=== PATIENT | male | born 1965 | race Caucasian/White ===

== ENCOUNTER → 2016-10-17 | Outpatient (CLI) | payer BC ==
[~2016-10-17] MED LIST: CIPR-255 PO
[2016-10-17 12:56] LABS: BASO % 0.3 %; BASO ABS # 0.02 K/uL (0-0.2); COMPLETE YES; EOS % 2.2 %; HEMATOCRIT 46.7 % (42-52); IG% 0.3 %; LYMPH % 28.2 %; MEAN CELL VOLUME 91.2 fL (80-100); MEAN CORPUSCULAR HEMOGLOBIN 32.4 pg (25-34); MEAN CORPUSCULAR HGB CONC 35.5 g/dl (32-36); MEAN PLATELET VOLUME 11.7 fL (7.4-10.4); MONO % 7.7 %; NEUT % 61.3 %; PLATELET COUNT 170 K/uL (130-400); RED BLOOD COUNT 5.12 M/uL (4.7-6.1); WHITE BLOOD COUNT 7.44 K/uL (4.8-10.8)
[2016-10-17 13:16] LABS: ALB/GLOB RATIO 1.1 (0.9-2); ALKALINE PHOSPHATASE 73 U/L (45-117); ALT/SGPT 39 U/L (12-78); AST/SGOT 22 U/L (15-37); BLOOD UREA NITROGEN 6 mg/dl (7-18); BUN/CREATININE RATIO 6.2 (10-20); CARBON DIOXIDE 27 mmol/L (21-32); CHLORIDE 104 mmol/L (98-107); CHOLESTEROL 228 mg/dl (0-200); CHOLESTEROL/HDL RATIO 2.9; CREATININE 0.98 mg/dl (0.60-1.40); GLUCOSE 105 mg/dl (70-99); HDL CHOLESTEROL 80 mg/dl; POTASSIUM 4.1 mmol/L (3.5-5.1); SODIUM 140 mmol/L (136-145)
[2016-10-17 13:30] LABS: LDL CHOLESTEROL CALCULATED 139 mg/dl; TRIGLYCERIDES 47 mg/dl (0-150); VERY LOW DENSITY LIPOPROT CALC 9 mg/dl
== END | disposition home or self-care (01) ==
LOC: C.LABPBG 10:31
PROVIDERS: ATTEND Neuromusculoskeletal Medicine & OMM
DX: Z00.00 Encounter for general adult medical examination without abnormal findings (principal)